=== PATIENT | female | born 1960 | race Two or more races ===

== ENCOUNTER 2020-06-11 13:52 | Emergency (ER) | payer MEDICAID, OTHER, SELFPAY ==
[~2020-06-11] VITALS: Ht 165.1 cm; Wt 78.3 kg
--- NOTE | 2020-06-11 14:20 | NUR ---
PT AMBULATORY TO ROOM FROM TRIAGE. PT CHANGED INTO GOWN, MONITORS IN PLACE. PT STATES SHE WAS [facility] TODAY AND THEY TOLD HER TO GO TO THE ER. CALL LIGHT WITHIN REACH. GENE
[2020-06-11 15:10] LABS: BASOPHILS % (AUTO) 0 % (0-1); EOSINOPHILS % (AUTO) 1 % (1-7); LYMPHOCYTES % (AUTO) 31 % (22-44); MEAN CORPUSCULAR HEMOGLOBIN 33.4 pg (27.0-34.8); MEAN CORPUSCULAR HGB CONC 34.8 g/dL (32.4-35.8); MEAN PLATELET VOLUME 8.6 fL (7.4-10.4); MONOCYTES % (AUTO) 4 % (2-9); NEUTROPHILS % (AUTO) 64 % (42-75); PLATELET COUNT 231 x10^3/uL (130-400); RED BLOOD COUNT 4.37 x10^6/uL (3.82-5.3); RED CELL DISTRIBUTION WIDTH 12.5 % (9.6-15.2)
[2020-06-11 15:13] LABS: MD NO
[2020-06-11 15:20] LABS: ALBUMIN 3.9 g/dL (3.4-5.0); ANION GAP 6 mmol/L (5-15); CALCIUM 9.3 mg/dL (8.5-10.1); CHLORIDE 106 mmol/L (98-107); CREATININE 0.73 mg/dL (0.55-1.02)
--- NOTE | 2020-06-11 15:29 | NUR ---
PT CALMLY LAYING ON GERA, GENE/VSS. CALL LIGHT WITHIN REACH
[2020-06-11 15:30] VITALS: BP 161/78
--- NOTE | 2020-06-11 15:36 | NUR ---
Patient given discharge instructions and they have confirmed that they understand the instructions. Patient ambulatory with steady gait.
== END 2020-06-11 15:38 | disposition home or self-care (01) ==
LOC: ED 15:32
DX: I10 Essential (primary) hypertension (principal)
CPT/HCPCS: 36415; 80048; 82040; 85025; 93005; 99284